=== PATIENT | male | born 2000 | race Caucasian/White ===

== ENCOUNTER 2019-02-08 18:09 | Emergency (ER) | payer BC ==
[2019-02-08 19:01] VITALS: BP 115/81
--- NOTE | 2019-02-08 19:33 | UC ---
Lower Extremity/Ankle HPI - HPI Summary HPI Summary: right ankle injury last night, continues with swelling/bruising, positive weight bearing. - History of Current Complaint Chief Complaint: UCLowerExtremity Stated Complaint: RIGHT ANKLE SWOLLEN/BRUISED Time Seen by Provider: 02/08/19 19:26 Hx Obtained From: Patient Onset/Duration: Sudden Onset, Lasting Hours Severity Initially: Severe Severity Currently: Severe Pain Intensity: 10 Aggravating Factor(s): Standing, Ambulation Alleviating Factor(s): Nothing Able to Bear Weight: Yes - Allergies/Home Medications Allergies/Adverse Reactions: Allergies Allergy/AdvReac Type Severity Reaction Status Date / Time No Known Allergies Allergy Verified 02/08/19 19:01 Home Medications: Home Medications NK [No Home Medications Reported] 02/08/19 [History Confirmed 02/08/19] PMH/Surg Hx/FS Hx/Imm Hx Previously Healthy: Yes - Surgical History Surgical History: None - Family History Known Family History: Positive: Hypertension - Social History Alcohol Use: None Substance Use Type: None Smoking Status (MU): Never Smoked Tobacco Review of Systems All Other Systems Reviewed And Are Negative: Yes Skin: Positive: Bruising Musculoskeletal: Positive: Arthralgia, Decreased ROM, Edema, Myalgia Is Patient Immunocompromised?: No Physical Exam Triage Information Reviewed: Yes Appearance: Well-Appearing, Pain Distress, Obese Vital Signs: Initial Vital Signs Temp 98.3 F 02/08/19 18:56 Pulse 112 02/08/19 18:56 Resp 16 02/08/19 18:56 BP 115/81 02/08/19 18:56 Pulse Ox 98 02/08/19 18:56 Vital Signs Reviewed: Yes Eye Exam: Normal ENT Exam: Normal Dental Exam: Normal Neck exam: Normal Respiratory Exam: Normal Respiratory: Positive: Chest non-tender, Lungs clear, Normal breath sounds Cardiovascular Exam: Normal Cardiovascular: Positive: RRR, No Murmur, Pulses Normal Abdominal Exam: Normal Abdomen Description: Positive: Nontender, No Organomegaly, Soft Bowel Sounds: Positive: Present Musculoskeletal: Positive: Strength Limited @, ROM Limited @, Edema @ - of the right ankle and up the lower leg over the fibula Neurological Exam: Normal Psychological Exam: Normal Skin Exam: Normal Lower Extremity Course/Dx - Course Course Of Treatment: hx obtained, exam performed ,meds reviewed, xray obtained - Differential Dx/Diagnosis Differential Diagnosis/HQI/PQRI: Fracture (Closed), Sprain, Strain Provider Diagnosis: Right ankle sprain Discharge ED - Sign-Out/Discharge Documenting (check all that apply): Patient Departure All imaging exams completed and their final reports reviewed: No - Discharge Plan Condition: Stable Disposition: HOME Patient Education Materials: Ankle Sprain (ED) Referrals: Armand Fuentes MD [Primary Care Provider] - Miquel August MD [Medical Doctor] - Additional Instructions: 1. use the robina and gel splint for support 2. Use the crutches to work back into weight bearing 3. FOllow up with orthopedic if you are not steadily improving. - Billing Disposition and Condition Condition: STABLE Disposition: Home
--- NOTE | 2019-02-09 12:56 | UC ---
- Progress Note Progress Note: Reviewed reading of ankle xray: per Dr. Sales "SOFT TISSUE SWELLING, NOR FRACTURE SEEN." Course/Dx - Diagnoses Provider Diagnoses: Right ankle sprain Discharge ED - Sign-Out/Discharge Documenting (check all that apply): Patient Departure All imaging exams completed and their final reports reviewed: Yes - Discharge Plan Condition: Stable Disposition: HOME Patient Education Materials: Ankle Sprain (ED) Referrals: Miquel August MD [Medical Doctor] - Armand Fuentes MD [Primary Care Provider] - Additional Instructions: 1. use the robina and gel splint for support 2. Use the crutches to work back into weight bearing 3. FOllow up with orthopedic if you are not steadily improving. - Billing Disposition and Condition Condition: STABLE Disposition: Home
== END 2019-02-08 20:08 | disposition home or self-care (01) ==
LOC: UCCORT 18:09
DX: S93.401A Sprain of unspecified ligament of right ankle, initial encounter (principal); M79.89 Other specified soft tissue disorders; X58.XXXA Exposure to other specified factors, initial encounter; Y92.9 Unspecified place or not applicable
CPT/HCPCS: 99212; G0463